=== PATIENT | male | born 1950 | race African-American/Black ===

== ENCOUNTER → 2017-03-15 | Outpatient (CLI) | payer MEDICARE, OTHER ==
--- NOTE | 2017-03-15 14:28 | RADIOLOGY REPORT (SQ) ---
EXAM DESCRIPTION: U/S RETROPERITON (RENAL/AORTA) COMPLETED DATE/TIME: 03/15/2017 1:47 pm REASON FOR STUDY: CKD UNSPEC (N18.9) N18.9 CHRONIC KIDNEY DISEASE, UNSPECIFIED COMPARISON: 03/02/2015 TECHNIQUE: Dynamic and static grayscale images acquired of the kidneys and bladder and recorded on P ACS. Additional selected color Doppler and spectral images recorded. LIMITATIONS: None. FINDINGS: RIGHT KIDNEY: Normal size, 10.9 cm. Normal echogenicity. No solid or suspicious masses. No hydronephrosis. No calcifications. LEFT KIDNEY: Normal size, 11.4 cm. Normal echogenicity. No solid or suspicious masses. No hydronephr osis. No calcifications. BLADDER: No masses are seen. Ureteral jets were not identified. OTHER FINDINGS: No other significant finding. IMPRESSION: NORMAL RENAL AND BLADDER ULTRASOUND. TECHNICAL DOCUMENTATION: JOB ID: [id number] [employer]- All Rights Reserved
== END ==
LOC: RAD 13:15
PROVIDERS: ATTEND Family Medicine
DX: N18.9 Chronic kidney disease, unspecified (principal)
CPT/HCPCS: 76770

== ENCOUNTER 2018-01-06 04:09 | Emergency (ER) | payer SELFPAY ==
--- NOTE | 2018-01-06 04:44 | ER Document Report ---
HPI - HPI Pain Level: 5 Notes: Patient is a 67-year-old male with a history of hypertension and gout who presents to the ED complaining of acute gout in his feet bilaterally and occasionally to his left knee. No injury. Patient states that he has had the same pain in the same area several times in the past and it has always been gout. Patient states he also has kidney disease and does not take the medicines usually just received steroids when he has flareups. Patient states that his pain does not radiate. Patient states that he has been walking on the sides of his feet because of pain in the plantar surface as well as to his ankles and big toes b/l. He has not noticed any other swelling or redness to the area. He denies any drug allergies. Denies any recent illness. No other concerns or complaints. Denies any headache, fever, URI, sore throat, chest pain, palpitations, syncope, cough, shortness of breath, wheeze, dyspnea, abdominal pain, nausea/vomiting/diarrhea, urinary retention, dysuria, hematuria , loss of control of bowel or bladder, numbness/tingling, saddle anesthesia, muscle paralysis/weakness, or rash. - ROS Systems Reviewed and Negative: Yes All other systems reviewed and negative Past Medical History - Social History Smoking Status: Never Smoker Family History: Reviewed & Not Pertinent - Past Medical History Cardiac Medical History: Reports: Hx Hypertension Denies: Hx Coronary Artery Disease, Hx Heart Attack Pulmonary Medical History: Denies: Hx Asthma, Hx Bronchitis, Hx COPD, Hx Pneumonia Neurological Medical History: Denies: Hx Cerebrovascular Accident, Hx Seizures Musculoskeltal Medical History: Reports Hx Arthritis - GOUT KNEE, FOOT OR HAND - Immunizations Hx Diphtheria, Pertussis, Tetanus Vaccination: Yes - < 10 YRS AGO Vertical Provider Document - CONSTITUTIONAL Agree With Documented VS: Yes Notes: PHYSICAL EXAMINATION: GENERAL: Well-appearing, well-nourished and in no acute distress. LUNGS: Breath sounds clear to auscultation bilaterally and equal. No wheezes rales or rhonchi. HEART: Regular rate and rhythm without murmurs, rubs, gallops. Musculoskeletal: b/l feet/ankles: No obvious swelling, erythema, warmth, or deformity. FROM to passive/active. Strength 5+/5. N/V intact distal. + tenderness to the proximal feet/ankles and great toes b/l. + tenderness to the plantar fascia b/l. Achilles intact. Extremities: No cyanosis, clubbing, or edema b/l. Peripheral pulses 2+. Capillary refill less than 3 seconds. NEUROLOGICAL: Normal speech, limping gait. Normal sensory, motor exams PSYCH: Normal mood, normal affect. SKIN: Warm, Dry, normal turgor, no rashes or lesions noted. - INFECTION CONTROL TRAVEL OUTSIDE OF THE [place] IN LAST 30 DAYS: No Course - Re-evaluation Re-evalutation: 01/06/18 04:43 Patient is an afebrile, well-hydrated, 67-year-old male who presents to the ED with bilateral feet and ankle pain, suspect gout along with plantar fasciitis bilaterally. Vitals are acceptable without any significant tachycardia, tachypnea, or hypoxia. PE is otherwise unremarkable for any neurovascular compromise, obvious tendon/ligament rupture, obvious fracture/dislocation, septic joint. No labs or imaging warranted at this time based on H&P. Patient is nontoxic-appearing. I will send him home with a prescription for a steroid taper. Conservative measures for symptoms. Recheck with your PCM in 2-3 days. Consider consult with orthopedic/podiatry. Return to the ED with any worsening/concerning symptoms otherwise as reviewed in discharge. Patient is in agreement. - Vital Signs Vital signs: Temp Pulse Resp BP Pulse Ox 98.7 F 103 H 16 155/79 H 98 01/06/18 04:16 01/06/18 04:16 01/06/18 04:16 01/06/18 04:16 01/06/18 04:16 Discharge - Discharge Clinical Impression: Pain in both feet Condition: Stable Disposition: HOME, SELF-CARE Instructions: Plantar Fasciitis or Heel Spur ([facility]), Gout ([facility]), Gout Diet ([facility]) Additional Instructions: Rest, Ice, Compression, Elevation Tylenol as needed Light stretches daily Strength exercises as able Moist heat and massage may help F/u with your PCP in 2-3 days for a recheck Consider consult(s) with Orthopedics/podiatry for ongoing/worsening symptoms Return to the ED with any worsening symptoms and/or development of fever, headache, chest pain, palpitations, syncope, shortness of breath, trouble breathing, abdominal pain, n/v/d, muscle weakness/paralysis, numbness/tingling, swelling, redness, or other worsening symptoms that are concerning to you. Prescriptions: Prednisone 20 mg PO ASDIR #18 tablet Forms: Elevated Blood Pressure Referrals: KAT VARNER MD [Primary Care Provider] - 01/08/18 [facility] [Provider Group] - Follow up as needed YULISSA MADRIGAL DPM [ACTIVE STAFF] - Follow up as needed
[2018-01-06] MEDS ORDERED: HYDROCODONE/ACETAMINOPHEN 5-325 MG TABLET PO ONE (04:59)
[2018-01-06 05:16] VITALS: BP 167/63
== END 2018-01-06 05:15 | disposition home or self-care (01) ==
LOC: ER 04:09
DX: M79.671 Pain in right foot (principal); M79.672 Pain in left foot; M25.571 Pain in right ankle and joints of right foot; M25.572 Pain in left ankle and joints of left foot; I10 Essential (primary) hypertension
CPT/HCPCS: 99283

== ENCOUNTER → 2018-02-17 | Outpatient (CLI) | payer MEDICARE, OTHER ==
--- NOTE | 2018-02-17 10:36 | RADIOLOGY REPORT (SQ) ---
EXAM DESCRIPTION: ELBOW RIGHT >2 VIEWS COMPLETED DATE/TIME: 02/17/2018 9:11 am REASON FOR STUDY: RHEUMATOID ARTHRITIS, UNSPECIFIED M06.9 RHEUMATOID ARTHRITIS, UNSPECIFIED COMPARISON: None. NUMBER OF VIEWS: Four views. TECHNIQUE: AP, lateral, and both oblique radiographic images acquired of the right elbow. LIMITATIONS: None. FINDINGS: MINERALIZATION: Normal. BONES: No acute fracture. Bulky bony spurring at the olecranon process at the triceps attachment. B kat spurring at the attachment of the common extensor tendon, lateral epicondyle. JOINT: No effusion. SOFT TISSUES: No soft tissue swelling. No foreign body. OTHER: No other significant finding. IMPRESSION: No joint effusion. No significant joint space narrowing or periarticular erosions. Bony spurring at tendon attachments, lateral epicondyle and olecranon TECHNICAL DOCUMENTATION: JOB ID: [id number] [employer]- All Rights Reserved Reading location - IP/workstation name: [email or web address]
--- NOTE | 2018-02-17 10:39 | RADIOLOGY REPORT (SQ) ---
EXAM DESCRIPTION: ANKLE BILATERAL 3 VIEWS MIN COMPLETED DATE/TIME: 02/17/2018 9:11 am REASON FOR STUDY: RHEUMATOID ARTHRITIS, UNSPECIFIED M06.9 RHEUMATOID ARTHRITIS, UNSPECIFIED COMPARISON: None. NUMBER OF VIEWS: Three views. TECHNIQUE: AP, lateral, and oblique radiographic images acquired of the right and left ankle. LIMITATIONS: None. FINDINGS: MINERALIZATION: Normal. BONES: No fracture or malalignment. There is mild bony spurring at the Achilles tendon attachments t o the calcaneus bilaterally. JOINTS: No malalignment at the ankle mortise. On the right side, moderate bony spurring along the do rsum of the foot at the navicular-cuneiform joints is seen. SOFT TISSUES: No soft tissue swelling. No foreign body. OTHER: No other significant finding. IMPRESSION: No joint effusions or aggressive periarticular erosions/ joint space narrowing Mild bony spurring at the Achilles tendon attachment to the calcanei bilaterally Right-sided intertarsal joint osteoarthritis with bony spurring TECHNICAL DOCUMENTATION: JOB ID: [id number] [employer]- All Rights Reserved Reading location - IP/workstation name: [email or web address]
--- NOTE | 2018-02-17 10:42 | RADIOLOGY REPORT (SQ) ---
EXAM DESCRIPTION: HAND BILATERAL 3 VIEWS COMPLETED DATE/TIME: 02/17/2018 9:11 am REASON FOR STUDY: RHEUMATOID ARTHRITIS, UNSPECIFIED M06.9 RHEUMATOID ARTHRITIS, UNSPECIFIED COMPARISON: None. EXAM PARAMETERS: NUMBER OF VIEWS: Three views right hand. Three views left hand. TECHNIQUE: AP, lateral and oblique radiographic images acquired of bilateral hands. LIMITATIONS: None. FINDINGS: RIGHT HAND: MINERALIZATION: Normal. BONES: No acute fracture or dislocation. No worrisome bone lesions. JOINTS: There is joint space narrowing with bony spurring at the 1st carpometacarpal joint, 1st 2nd a nd 3rd MCP joints, thumb interphalangeal joint, 2nd 3rd and 5th PIP and DIP joint characteristic for osteoarthritis SOFT TISSUES: No swelling. No calcifications. OTHER: No other significant finding. LEFT HAND: MINERALIZATION: Normal. BONES: No acute fracture or dislocation. No worrisome bone lesions. JOINTS: There is mild joint space narrowing and osteophyte formation at the 1st carpometacarpal joint , 1st 2nd and 3rd metacarpophalangeal joints, thumb interphalangeal joint, 3rd and 5th finger PIP and DIP joints characteristic for osteoarthritis SOFT TISSUES: No swelling. No calcifications. OTHER: No other significant finding. IMPRESSION: Osteoarthritis both hands TECHNICAL DOCUMENTATION: JOB ID: [id number] [employer]- All Rights Reserved Reading location - IP/workstation name: [email or web address]
--- NOTE | 2018-02-17 11:04 | RADIOLOGY REPORT (SQ) ---
EXAM DESCRIPTION: KNEE LEFT 4 VIEWS COMPLETED DATE/TIME: 02/17/2018 9:11 am REASON FOR STUDY: RHEUMATOID ARTHRITIS, UNSPECIFIED M06.9 RHEUMATOID ARTHRITIS, UNSPECIFIED COMPARISON: None. NUMBER OF VIEWS: Four views. TECHNIQUE: AP, lateral, and both oblique radiographic images acquired of the left knee. LIMITATIONS: None. FINDINGS: MINERALIZATION: Normal. BONES: No acute fracture or dislocation. No worrisome bone lesions. Benign-appearing bony spurring at the quadriceps and patellar tendon attachments to the patella JOINT: Mild medial compartment joint space narrowing. No significant joint effusion. SOFT TISSUES: No soft tissue swelling. No radio-opaque foreign body. OTHER: No other significant finding. IMPRESSION: Mild medial compartment joint space narrowing. TECHNICAL DOCUMENTATION: JOB ID: [id number] [employer]- All Rights Reserved Reading location - IP/workstation name: [email or web address]
--- NOTE | 2018-02-17 11:05 | RADIOLOGY REPORT (SQ) ---
EXAM DESCRIPTION: KNEE RIGHT 4 VIEWS COMPLETED DATE/TIME: 02/17/2018 9:11 am REASON FOR STUDY: RHEUMATOID ARTHRITIS, UNSPECIFIED M06.9 RHEUMATOID ARTHRITIS, UNSPECIFIED COMPARISON: None. NUMBER OF VIEWS: Four views. TECHNIQUE: AP, lateral, and both oblique radiographic images acquired of the right knee. LIMITATIONS: None. FINDINGS: MINERALIZATION: Normal. BONES: No acute fracture or dislocation. No worrisome bone lesions. Benign bony spurring at the ravinder driceps and patellar tendon attachments to the patella. JOINT: Very mild medial compartment joint space narrowing. No suprapatellar knee joint effusion SOFT TISSUES: No soft tissue swelling. No radio-opaque foreign body. OTHER: No other significant finding. IMPRESSION: Very mild medial compartment joint space narrowing and bony spurring TECHNICAL DOCUMENTATION: JOB ID: [id number] [employer]- All Rights Reserved Reading location - IP/workstation name: [email or web address]
== END ==
LOC: OD 08:17
PROVIDERS: ATTEND Internal Medicine
DX: M06.89 Other specified rheumatoid arthritis, multiple sites (principal)

== ENCOUNTER → 2018-02-20 | Outpatient (CLI) | payer MEDICARE, OTHER ==
[2018-02-20 08:22] LABS: ABSOLUTE BASOPHILS # (AUTO) 0.1 10^3/uL (0.0-0.2); ABSOLUTE EOSINOPHILS # (AUTO) 0.1 10^3/uL (0.0-0.6); ABSOLUTE LYMPHOCYTES (AUTO) 2.7 10^3/uL (0.5-4.7); ABSOLUTE MONOCYTES (AUTO) 0.7 10^3/uL (0.1-1.4); ABSOLUTE NEUT (AUTO) 3.8 10^3/uL (1.7-8.2); BASOPHILS % (AUTO) 0.7 % (0-2); EOSINOPHILS % (AUTO) 0.9 % (0-6); HEMATOCRIT 39.7 % (37.9-51.0); HEMOGLOBIN 13.2 g/dL (13.5-17.0); LYMPHOCYTES % (AUTO) 37.7 % (13-45); MEAN CORPUSCULAR HEMOGLOBIN 27.5 pg (27.0-33.4); MEAN CORPUSCULAR HGB CONC 33.2 g/dL (32.0-36.0); MEAN CORPUSCULAR VOLUME 83 fl (80-97); PLATELET COUNT 332 10^3/uL (150-450); RED CELL DISTRIBUTION WIDTH 17.3 % (11.5-14.0); SEGMENTED NEUTROPHILS % (AUTO) 51.7 % (42-78); TOTAL CELLS COUNTED % (AUTO) 100 %; WHITE BLOOD COUNT 7.3 10^3/uL (4.0-10.5)
[2018-02-20 09:06] LABS: ERYTHROCYTE SEDIMENTATION RATE 43 mm/hr (0-20)
[2018-02-20 09:16] LABS: ANION GAP 14 (5-19); BLOOD UREA NITROGEN 16 mg/dL (7-20); CALCIUM 9.4 mg/dL (8.4-10.2); CARBON DIOXIDE 22 mmol/L (22-30); CHLORIDE 109 mmol/L (98-107); GLUCOSE 95 mg/dL (75-110); URIC ACID 6.9 mg/dL (3.5-8.5)
== END ==
LOC: OD 07:37
PROVIDERS: ATTEND Internal Medicine
DX: M06.9 Rheumatoid arthritis, unspecified (principal); M32.9 Systemic lupus erythematosus, unspecified; D64.9 Anemia, unspecified; N19 Unspecified kidney failure; M10.9 Gout, unspecified
CPT/HCPCS: 36415; 80048; 84550; 85025; 85652; 86038; 86430

== ENCOUNTER → 2018-05-09 | Outpatient (CLI) | payer MEDICARE, OTHER ==
[2018-05-09 08:50] LABS: ANION GAP 11 (5-19); BLOOD UREA NITROGEN 21 mg/dL (7-20); CALCIUM 9.2 mg/dL (8.4-10.2); CARBON DIOXIDE 26 mmol/L (22-30); CHLORIDE 110 mmol/L (98-107); GLUCOSE 86 mg/dL (75-110); POTASSIUM 5.1 mmol/L (3.6-5.0); SODIUM 146.5 mmol/L (137-145); URIC ACID 7.1 mg/dL (3.5-8.5)
== END ==
LOC: OD 07:26
PROVIDERS: ATTEND Internal Medicine
DX: M10.9 Gout, unspecified (principal); N28.9 Disorder of kidney and ureter, unspecified
CPT/HCPCS: 36415; 80048; 84550

== ENCOUNTER → 2018-05-14 | Outpatient (CLI) | payer OTHER ==
[2018-05-14 08:21] LABS: ANION GAP 11 (5-19); BLOOD UREA NITROGEN 23 mg/dL (7-20); CALCIUM 9.3 mg/dL (8.4-10.2); CARBON DIOXIDE 25 mmol/L (22-30); CHLORIDE 108 mmol/L (98-107); GLUCOSE 91 mg/dL (75-110)
== END ==
LOC: OD 07:11
PROVIDERS: ATTEND Internal Medicine
DX: E87.5 Hyperkalemia (principal)
CPT/HCPCS: 36415; 80048

== ENCOUNTER → 2018-08-12 | Outpatient (CLI) | payer MEDICARE, OTHER ==
[2018-08-12 09:21] LABS: ANION GAP 6 (5-19); BLOOD UREA NITROGEN 15 mg/dL (7-20); CALCIUM 9.3 mg/dL (8.4-10.2); CARBON DIOXIDE 27 mmol/L (22-30); CHLORIDE 112 mmol/L (98-107); GLUCOSE 96 mg/dL (75-110); POTASSIUM 4.6 mmol/L (3.6-5.0)
== END ==
LOC: OD 07:44
PROVIDERS: ATTEND Internal Medicine
DX: N19 Unspecified kidney failure (principal)
CPT/HCPCS: 36415; 80048

== ENCOUNTER → 2019-07-02 | Outpatient (CLI) | payer MEDICARE, OTHER ==
[2019-07-02 08:10] LABS: ABSOLUTE BASOPHILS # (AUTO) 0.1 10^3/uL (0.0-0.2); ABSOLUTE EOSINOPHILS # (AUTO) 0.1 10^3/uL (0.0-0.6); ABSOLUTE LYMPHOCYTES (AUTO) 2.3 10^3/uL (0.5-4.7); ABSOLUTE MONOCYTES (AUTO) 0.5 10^3/uL (0.1-1.4); ABSOLUTE NEUT (AUTO) 2.7 10^3/uL (1.7-8.2); EOSINOPHILS % (AUTO) 1.9 % (0-6); HEMATOCRIT 42.8 % (37.9-51.0); LYMPHOCYTES % (AUTO) 40.9 % (13-45); MEAN CORPUSCULAR HEMOGLOBIN 28.7 pg (27.0-33.4); MEAN CORPUSCULAR HGB CONC 32.7 g/dL (32.0-36.0); MEAN CORPUSCULAR VOLUME 88 fl (80-97); MONOCYTES % (AUTO) 8.3 % (3-13); PLATELET COUNT 216 10^3/uL (150-450); RED BLOOD COUNT 4.89 10^6/uL (4.35-5.55); SEGMENTED NEUTROPHILS % (AUTO) 47.9 % (42-78); TOTAL CELLS COUNTED % (AUTO) 100 %; WHITE BLOOD COUNT 5.7 10^3/uL (4.0-10.5)
[2019-07-02 08:29] LABS: ALKALINE PHOSPHATASE 92 U/L (38-126); ANION GAP 11 (5-19); ASPARTATE AMINO TRANSFERASE 32 U/L (17-59); BILIRUBIN,DIRECT 0.3 mg/dL (0.0-0.4); BILIRUBIN,TOTAL 0.5 mg/dL (0.2-1.3); BLOOD UREA NITROGEN 15 mg/dL (7-20); CALCIUM 9.4 mg/dL (8.4-10.2); CARBON DIOXIDE 25 mmol/L (22-30); CHLORIDE 106 mmol/L (98-107); CHOLESTEROL 126.76 mg/dL (0-200); GLUCOSE 94 mg/dL (75-110); POTASSIUM 3.9 mmol/L (3.6-5.0); TOTAL PROTEIN 7.6 g/dL (6.3-8.2); TRIGLYCERIDES 179 mg/dL (<150); URIC ACID 8.1 mg/dL (3.5-8.5)
[2019-07-02 08:40] LABS: DIRECT LDL 45 mg/dL (<100)
[2019-07-02 08:44] LABS: VLDL CHOLESTEROL 35.8 mg/dL (10-31)
== END ==
LOC: OD 07:18
PROVIDERS: ATTEND Family Medicine Geriatric Medicine
DX: I12.9 Hypertensive chronic kidney disease with stage 1 through stage 4 chronic kidney disease, or unspecified chronic kidney disease (principal); N18.3 Chronic kidney disease, stage 3 (moderate); E66.9 Obesity, unspecified; Z79.899 Other long term (current) drug therapy
CPT/HCPCS: 36415; 80053; 80061; 82306; 84550; 85025

== ENCOUNTER → 2019-09-16 | Outpatient (CLI) | payer OTHER, MEDICARE ==
[2019-09-16 09:49] LABS: TRIGLYCERIDES 133 mg/dL (<150); URIC ACID 4.8 mg/dL (3.5-8.5)
[2019-09-16 10:02] LABS: DIRECT LDL 56 mg/dL (<100)
== END ==
LOC: OD 07:38
PROVIDERS: ATTEND Family Medicine Geriatric Medicine
DX: E78.1 Pure hyperglyceridemia (principal); N18.3 Chronic kidney disease, stage 3 (moderate); M10.9 Gout, unspecified; E66.9 Obesity, unspecified; Z79.899 Other long term (current) drug therapy
CPT/HCPCS: 36415; 80061; 84443; 84460; 84550

== ENCOUNTER → 2020-07-06 | Outpatient (CLI) | payer MEDICARE, OTHER ==
[2020-07-06 09:18] LABS: ANION GAP 6 (5-19); BLOOD UREA NITROGEN 26 mg/dL (7-20); CARBON DIOXIDE 29 mmol/L (22-30); CHLORIDE 106 mmol/L (98-107); CHOLESTEROL 123.55 mg/dL (0-200); GLUCOSE 100 mg/dL (75-110); POTASSIUM 4.5 mmol/L (3.6-5.0); TRIGLYCERIDES 137 mg/dL (<150); URIC ACID 5.7 mg/dL (3.5-8.5)
[2020-07-06 09:32] LABS: DIRECT LDL 48 mg/dL (<100)
== END ==
LOC: OD 07:31
PROVIDERS: ATTEND Family Medicine Geriatric Medicine
DX: E55.9 Vitamin D deficiency, unspecified (principal); E03.9 Hypothyroidism, unspecified; I10 Essential (primary) hypertension; M10.9 Gout, unspecified; Z79.899 Other long term (current) drug therapy
CPT/HCPCS: 36415; 80048; 80061; 84460; 84550